=== PATIENT | female | born 1975 | race Caucasian/White ===

== ENCOUNTER 2017-09-21 10:21 | Emergency (ER) | payer BC, MEDICARE ==
[~2017-09-21] VITALS: Ht 172.7 cm; Wt 128.0 kg
[~2017-09-21 10:21] MED LIST: CEPH500C3 PO; PERC5TAB12 PO; PRENTAB72 PO
[2017-09-21 10:40] VITALS: BP 125/58; PULSE 86; RESP 17; TEMP 98.5; O2SAT 97
--- NOTE | 2017-09-21 11:10 | PD ---
HPI Chief Complaint: Injury Time Seen by Provider: 10:46 Travel History International Travel<30 days: No Contact w/Intl Traveler<30days: No Traveled to known affect area: No History of Present Illness HPI 42-year-old female presents the emergency department with pain in the right wrist, at the base of the thumb. She states 3 days ago she was tickling and wrestling her 12-year-old son, when he rolled over onto her hand hyperflexing it. She has since had pain in the snuffbox region of the right hand and wrist. She denies numbness, tingling, or obvious loss of function, but using it makes it worse. There is no significant swelling noted. She has no other injuries. Pain is currently 8 out of 10 and worse with motion. She has multiple allergies including pickles, strawberries, acetaminophen, adhesive, amoxicillin, clavulanic acid, oxycodone, penicillin, and propoxyphene. 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) Musculoskeletal: No Neurologic: No Psychiatric: No Reproductive: No Respiratory: No Migraines: No Radiation Therapy: No Renal Failure: No Seizures: No Sleep Apnea: No Thyroid Disease: No Ulcer: No Tetanus Vaccination: < 5 Years ?: Not : 3 Para: 1 Past Surgical History Abdominal Surgery: No AICD: No Arteriovenous Shunt: No Cardiac Surgery: No Ear Surgery: No Endocrine Surgery: No Eye Surgery: Yes (bilateral cataract surgery with lens implants) Genitourinary Surgery: No Gynecologic Surgery: No Insulin Pump: No Joint Replacement: No Oral Surgery: Yes (6 teeth removed at one time including 4 wisdom teeth) Pacemaker: No Thoracic Surgery: No Tonsillectomy: Yes Other Surgery: Yes (ADENOIDECTOMY) Social History Alcohol Use: No Tobacco Use: No Substance Use: No Allergies-Medications (Allergen,Severity, Reaction): Coded Allergies: acetaminophen (Unverified Allergy, Severe, RASH AND VOMITING, 09/21/17) adhesive (Unverified Allergy, Severe, 09/21/17) oxycodone (Unverified Allergy, Severe, RASH AND VOMITING, 09/21/17) propoxyphene (Unverified Allergy, Severe, RASH AND VOMITING, 09/21/17) *MDRO Multi-Drug Resistant Organism (Verified Allergy, Unknown, 09/21/17) 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 amoxicillin (Unverified Allergy, Unknown, GI REACTION= VOMITING, 09/21/17) clavulanic acid (Unverified Allergy, Unknown, GI REACTION= VOMITING, ) penicillin G (Unverified Allergy, Unknown, HIVES,RASH AN , ) Uncoded Allergies: PICKLES (Allergy, Severe, HIVES,RASH,SWELLING TO ESOPHAGUS, 07/25/05) STRAWBERRIES (Allergy, Severe, HIVES,RASH,SWELLING TO ESOPHAGUS, 07/25/05) Reported Meds & Prescriptions Reported Meds & Active Scripts Active Ibuprofen 600 Mg Tab 600 Mg PO Q6H PRN Review of Systems Except as stated in HPI: all other systems reviewed are Neg General / Constitutional: No: Fever Eyes: No: Visual changes HENT: No: Headaches Cardiovascular: No: Chest Pain or Discomfort Respiratory: No: Shortness of Breath Gastrointestinal: No: Abdominal Pain Genitourinary: No: Dysuria Musculoskeletal: Positive: Arthralgias, Limited ROM, Pain Skin: No Rash Neurologic: No: Weakness Psychiatric: No: Depression Endocrine: No: Polydipsia Hematologic/Lymphatic: No: Easy Bruising Physical Exam Narrative GENERAL: Patient appears in no obvious distress per SKIN: Warm and dry. Normal color. Normal turgor. No rash. HEAD: Atraumatic. Normocephalic. EYES: Pupils equal and round. No scleral icterus. No injection or drainage. ENT: No nasal bleeding or discharge. Mucous membranes pink and moist. Pharynx is clear. Airways patent. NECK: Trachea midline. Supple and nontender. CARDIOVASCULAR: Regular rate and rhythm. RESPIRATORY: No accessory muscle use. Clear to auscultation. Breath sounds equal bilaterally. MUSCULOSKELETAL: Extremities without clubbing, cyanosis, or edema. No obvious deformities. The right hand appears normal, but patient complains of pain with palpation of the snuffbox on the right wrist. Range of motion is somewhat limited secondary to pain. No obvious loss of function noted. No significant swelling. NEUROLOGICAL: Awake and alert. No obvious cranial nerve deficits. Motor grossly within normal limits. Five out of 5 muscle strength in the arms and legs. Normal speech. PSYCHIATRIC: Appropriate mood and affect; insight and judgment normal. Data Data Last Documented VS Vital Signs Date Time Temp Pulse Resp B/P (MAP) Pulse Ox O2 Delivery O2 Flow Rate FiO2 09/21/17 10:40 98.5 86 17 125/58 (80) 97 Orders Orders Wrist, Complete ([id number]) (09/21/17 10:48) Splinting (09/21/17 ) MDM Medical Decision Making Medical Screen Exam Complete: Yes Emergency Medical Condition: Yes Differential Diagnosis Right wrist sprain. Carpal fracture. Tenosynovitis. Narrative Course X-ray of the right wrist is ordered. Patient has ice that she is applying to the area. No obvious fracture is noted on x-ray. Patient is placed in a thumb spica splint for comfort, and should remain in for the next week. Patient is given ibuprofen 600 mg 3 times daily for 10 days. Patient should ice it, and increased use as tolerated after 1 week. Patient to follow with primary care physician or return to ED if symptoms do not improve or worsen as needed. Diagnosis Primary Impression: Sprain of right wrist Qualified Codes: S63.501A - Unspecified sprain of right wrist, initial encounter Additional Impression: Sprain of right thumb Qualified Codes: S63.641A - Sprain of metacarpophalangeal joint of right thumb , initial encounter Patient Instructions: General Instructions, Skier's Thumb (ED), Wrist Sprain ( ED) Departure Forms: Work Release Enter return to work date: Sep 22, 2017 Special Instructions: Patient is to wear her splint for 1 week. Additional Instructions: No obvious fracture is noted on x-ray. Patient is placed in a thumb spica splint for comfort, and should remain in for the next week. Patient is given ibuprofen 600 mg 3 times daily for 10 days. Patient should ice it, and increased use as tolerated after 1 week. Patient to follow with primary care physician or return to ED if symptoms do not improve or worsen as needed. Med/Other Pt SpecificInfo: Prescription(s) given Scripts Ibuprofen (Ibuprofen) 600 Mg Tab 600 MG PO Q6H Y for Pain/Inflammation, #40 TAB 0 Refills Prov: Manuel Almanzar MD 09/21/17 Disposition: 01 DISCHARGE HOME Condition: Stable Demetrius Tavera Sep 21, 2017 11:10
--- NOTE | 2017-09-21 11:17 | RADRPT ---
EXAM DATE/TIME: 09/21/2017 11:06 [facility] COMPARISON: No previous studies available for comparison. INDICATIONS : Wrestling with children last night and bent wrist backwars. Lateral pain. MEDICAL HISTORY : None. SURGICAL HISTORY : None. ENCOUNTER: Initial ACUITY: 1 day PAIN SCORE: 6/10 LOCATION: Right Wrist FINDINGS: Three view examination of the right wrist demonstrates no soft tissue swelling, dislocation, or fract ure. The carpal bones are in normal alignment. The joint spaces are maintained. Bony mineralizatio n is normal. CONCLUSION: Negative for fracture or dislocation. Follow up in 7-10 days is suggested if symptoms persist. Boom Garcia MD FACR on September 21, 2017 at 11:13 Board Certified Radiologist. This report was verified electronically.
[2017-09-21] MEDS ORDERED: IBUP-232 PO (11:22)
== END 2017-09-21 11:42 | disposition home or self-care (01) ==
LOC: NEPK 10:21
DX: S63.501A Unspecified sprain of right wrist, initial encounter (principal); S63.641A Sprain of metacarpophalangeal joint of right thumb, initial encounter; X50.9XXA Other and unspecified overexertion or strenuous movements or postures, initial encounter; Y93.83 Activity, rough housing and horseplay
CPT/HCPCS: 73110; 99283; L3808